=== PATIENT | male | born 1980 | race African-American/Black ===

== ENCOUNTER 2019-04-18 11:02 | Emergency (ER) | payer OTHER ==
[~2019-04-18] VITALS: Ht 175.3 cm; Wt 117.9 kg
[2019-04-18 11:30] LABS: URINE BILIRUBIN NEGATIVE (Negative); URINE BLOOD 3+ (Negative); URINE CLARITY CLEAR; URINE COLOR YELLOW; URINE GLUCOSE-RANDOM* NEGATIVE (Negative); URINE KETONES NEGATIVE (Negative); URINE LEUKOCYTES-REFLEX 3+ (Negative); URINE NITRITE-REFLEX POSITIVE (Negative); URINE PROTEIN (DIPSTICK) 2+ (Negative); URINE UROBILINOGEN 0.2 E.U./dl (0.2-1.0)
[2019-04-18 11:35] LABS: CASTS None Seen /LPF (None Seen); SQUAMOUS 0-3 Few /LPF (0-3); URINE RBC >20 Many /HPF (0-2); URINE WBC-REFLEX >25 Many /HPF (0-5)
[2019-04-18 11:36] LABS: CRYSTALS None Seen /LPF (None Seen); WBC CLUMPS Packed (None Seen)
[2019-04-18 13:27] LABS: HEMATOCRIT 39.7 % (42.0-52.0); MCH 29.8 pg (26.0-34.0); MCHC 32.8 g/dL (28.0-37.0); MCV 90.7 fL (80.0-100.0); PLATELET COUNT 342 thou/uL (150-400); RBC 4.37 mil/uL (4.50-6.00); RDW 13.5 % (10.5-14.5); WBC 20.4 thou/uL (4.0-11.0)
[2019-04-18 13:35] LABS: CALCIUM 9.9 mg/dL (8.5-10.1); CREATININE 1.1 mg/dL (0.7-1.3)
[2019-04-18 13:57] LABS: ABSOLUTE NEUTROPHILS 14.5 thou/uL (1.4-8.2)
[2019-04-18 17:20] VITALS: BP 134/82
== END 2019-04-18 17:22 | disposition short-term general hospital (02) ==
LOC: ER 11:02
PROVIDERS: Physician Assistant
DX: A41.9 Sepsis, unspecified organism (principal); N39.0 Urinary tract infection, site not specified; R31.9 Hematuria, unspecified; R42 Dizziness and giddiness; F17.210 Nicotine dependence, cigarettes, uncomplicated

== ENCOUNTER 2019-06-22 19:55 | Emergency (ER) | payer OTHER ==
[~2019-06-22] VITALS: Ht 175.3 cm; Wt 118.8 kg
[2019-06-22 20:46] LABS: URINE BILIRUBIN NEGATIVE (Negative); URINE BLOOD 2+ (Negative); URINE CLARITY CLEAR; URINE COLOR YELLOW; URINE GLUCOSE-RANDOM* NEGATIVE (Negative); URINE KETONES NEGATIVE (Negative); URINE NITRITE-REFLEX NEGATIVE (Negative); URINE PROTEIN (DIPSTICK) TRACE (Negative); URINE SPECIFIC GRAVITY <= 1.005 (1.005-1.035); URINE UROBILINOGEN 0.2 E.U./dl (0.2-1.0)
[2019-06-22 20:55] LABS: URINE LEUKOCYTES-REFLEX 1+ (Negative)
[2019-06-22 21:01] LABS: CASTS None Seen /LPF (None Seen); SQUAMOUS 0-3 Few /LPF (0-3)
[2019-06-22 21:02] LABS: BACTERIA-REFLEX None Seen /HPF (None Seen); CRYSTALS None Seen /LPF (None Seen); URINE RBC 0-2 Rare /HPF (0-2); URINE WBC-REFLEX 6-15 Few /HPF (0-5); WBC CLUMPS Few (None Seen)
[2019-06-22 22:57] LABS: HEMATOCRIT 43.3 % (42.0-52.0); MCH 27.2 pg (26.0-34.0); MCHC 32.4 g/dL (28.0-37.0); MCV 83.8 fL (80.0-100.0); RBC 5.17 mil/uL (4.50-6.00); RDW 15.8 % (10.5-14.5)
[2019-06-22 23:01] LABS: CALCIUM 9.3 mg/dL (8.5-10.1); POTASSIUM 3.7 mmol/L (3.5-5.1)
[2019-06-22 23:08] LABS: ALBUMIN 3.8 g/dL (3.4-5.0); DIRECT BILIRUBIN 0.1 mg/dL (<0.1-0.3); TOTAL BILIRUBIN 0.5 mg/dL (<0.1-1.0); TOTAL PROTEIN 7.8 g/dL (6.4-8.2)
[2019-06-23 03:37] VITALS: BP 146/93
== END 2019-06-23 03:38 | disposition short-term general hospital (02) ==
LOC: ER 19:55
PROVIDERS: Emergency Medicine
DX: A41.9 Sepsis, unspecified organism (principal); N39.0 Urinary tract infection, site not specified; G82.20 Paraplegia, unspecified; R58 Hemorrhage, not elsewhere classified; Z98.890 Other specified postprocedural states; Z88.0 Allergy status to penicillin; F17.210 Nicotine dependence, cigarettes, uncomplicated

== ENCOUNTER 2019-09-10 23:15 | Emergency (ER) | payer OTHER ==
[~2019-09-10] VITALS: Ht 175.3 cm; Wt 117.9 kg
[2019-09-10] MEDS ORDERED: MUSCLE RELAXANT (23:21)
[2019-09-10] MEDS ORDERED: [UNRECOGNIZED DRUG - REMARK] (23:21)
[2019-09-11 01:46] VITALS: BP 135/97
== END 2019-09-11 01:47 | disposition home or self-care (01) ==
LOC: ER 23:15
DX: M54.2 Cervicalgia (principal); R51 Headache; I10 Essential (primary) hypertension; F17.210 Nicotine dependence, cigarettes, uncomplicated; Z88.0 Allergy status to penicillin

== ENCOUNTER 2020-09-23 18:19 | Inpatient (IN) | payer OTHER ==
[~2020-09-23] VITALS: Ht 175.3 cm; Wt 123.6 kg
[~2020-09-23 18:19] MED LIST: MUSCLE RELAXANT; [UNRECOGNIZED DRUG - REMARK]
[2020-09-23 18:22] VITALS: BP 141/86
[2020-09-23] MEDS ORDERED: OXYBUTYNIN 5 MG5 M2 PO (18:33)
[2020-09-23] MEDS ORDERED: ROXICODONE15 MG PO (18:33)
[2020-09-23] MEDS ORDERED: BENAZEPRIL HCL5 MG PO (18:34)
[2020-09-23] MEDS ORDERED: FAMOTIDINE40 MG PO (18:35)
[2020-09-23 19:22] LABS: ABSOLUTE NEUTROPHILS 11.6 thou/uL (1.4-8.2); BASOPHILS 0.2 % (0.0-2.0); EOSINOPHILS 0.1 % (0.0-3.0); HEMOGLOBIN 17.7 gm/dL (14.0-18.0); LYMPHOCYTES 7.3 % (24.0-44.0); MCH 30.1 pg (26.0-34.0); MCHC 32.7 g/dL (28.0-37.0); MONOCYTES 2.2 % (1.0-8.0); PLATELET COUNT 211 thou/uL (150-400); POLYS 90.2 % (36.0-66.0); RBC 5.86 mil/uL (4.50-6.00); RDW 14.3 % (10.5-14.5); WBC 12.8 thou/uL (4.0-11.0)
[2020-09-23 19:27] LABS: URINE BILIRUBIN NEGATIVE (Negative); URINE BLOOD NEGATIVE (Negative); URINE CLARITY CLEAR; URINE COLOR YELLOW; URINE GLUCOSE-RANDOM* NEGATIVE (Negative); URINE KETONES NEGATIVE (Negative); URINE LEUKOCYTES-REFLEX NEGATIVE (Negative); URINE NITRITE-REFLEX NEGATIVE (Negative); URINE PROTEIN (DIPSTICK) 3+ (Negative); URINE SPECIFIC GRAVITY >= 1.030 (1.005-1.035); URINE UROBILINOGEN 0.2 E.U./dl (0.2-1.0)
[2020-09-23 19:40] LABS: SQUAMOUS 4-10 Moderate /LPF (0-3)
[2020-09-23 19:41] LABS: CASTS None Seen /LPF (None Seen); URINE WBC-REFLEX 6-15 Few /HPF (0-5)
[2020-09-23 19:42] LABS: BACTERIA-REFLEX 1-9 Few /HPF (None Seen); CRYSTALS None Seen /LPF (None Seen); MUCUS >6 Heavy strn/LPF (None Seen); URINE RBC None Seen /HPF (0-2)
[2020-09-23 19:48] LABS: CALCIUM 9.7 mg/dL (8.5-10.1); CREATININE 1.1 mg/dL (0.7-1.3); POTASSIUM 4.2 mmol/L (3.5-5.1)
[2020-09-23 19:54] LABS: ALBUMIN 4.3 g/dL (3.4-5.0); TOTAL BILIRUBIN 0.4 mg/dL (0.2-1.0); TOTAL PROTEIN 8.5 g/dL (6.4-8.2)
[2020-09-23] MEDS ORDERED: LEVOFLOXACIN750 MG PO (21:23)
[2020-09-23] MEDS ORDERED: ONDANSETRON HCL4 M2 PO (21:32)
[2020-09-24 13:43] VITALS: BP 156/85
[2020-09-24 14:20] VITALS: BP 156/85
[2020-09-24 14:35] VITALS: BP 140/78
[2020-09-24 15:05] VITALS: BP 151/95
[2020-09-24 15:15] VITALS: BP 151/95
--- NOTE | 2020-09-24 17:08 | NUR ---
PATIENT ARRIVED ON UNIT FROM ER REPORT WAS GIVEN. PT IN ROOM 448 ACCOMPAINED BY HIS AUNT. PT ALERT XS4. V.S 98.6 18 109 151/95 O2 SAT94% 2L /NC . FLUIDS INFUSING ORDERED.WEIGHT = 272.6 HEIGHT =5'9". PT STATES NO PAIN OR RESP DISTRESS. HEART HEALLY DIET. DR LEE IS HOSPITALIST FOR PATIENT.
[2020-09-24 20:45] VITALS: BP 148/92
[2020-09-25 03:41] LABS: HEMATOCRIT 48.8 % (42.0-52.0); HEMOGLOBIN 15.9 gm/dL (14.0-18.0); MCH 29.9 pg (26.0-34.0); MCHC 32.5 g/dL (28.0-37.0); RBC 5.31 mil/uL (4.50-6.00); RDW 14.7 % (10.5-14.5)
--- NOTE | 2020-09-25 04:09 | NUR ---
PATIENT ALERT AND ORIENTED X4. DENIES PAIN. STATED THAT HE DID NOT WANT HIS CONTINUOUS IVF ANYMORE. THIS WAS STOPPED BY THE NURSE. ST CALF SELF WITH CLEAR YELLOW URINE. PATIENT REQUESTED BOOTS ON HIS LOWER LEGS, THIS NURSE ELEVATED WITH A PILLOW AND PUT HIS YELLOW SOCKS ON. REQUESTING BACLOFEN FOR SPASMS AT TIME OF NOTE. THIS NURSE EXPLAINED THAT THIS MED IS SCHEDULED FOR 0600, HOWEVER, IT WAS GIVEN EARLY PER REQUEST. PATIENT HAS MANY REQUESTS AT ONCE. WILL MONITOR.
[2020-09-25 04:27] LABS: CALCIUM 9.6 mg/dL (8.5-10.1); CREATININE 1.3 mg/dL (0.7-1.3); POTASSIUM 4.3 mmol/L (3.5-5.1)
[2020-09-25 08:00] VITALS: BP 150/104
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
[2020-09-25] MEDS ORDERED: BACLOFEN 10MG T10 MG PO (10:45)
[2020-09-25] MEDS ORDERED: MECLIZINE HCL25 MG PO (10:45)
[2020-09-25] MEDS ORDERED: AUGMENTIN 875-1 EACH PO (10:53)
[2020-09-25 10:55] VITALS: BP 150/104
--- NOTE | 2020-09-25 14:22 | NUR ---
PT DISCHARGED HOME WITH NO NEEDS. PT LEFT THE UNIT PRIOR TO SEEING CM.
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
== END 2020-09-25 12:43 | disposition home or self-care (01) | DRG 690 ==
LOC: ER 18:19 → EROBS 09-24 00:21 → 4S 09-24 00:21 → EROBS 09-24 10:04 → 4S 09-24 14:53
PROVIDERS: Nurse Practitioner; Nurse Practitioner Family; ADMIT Hospitalist; ATTEND Hospitalist
DX: N39.0 Urinary tract infection, site not specified (principal); G82.20 Paraplegia, unspecified; R65.10 Systemic inflammatory response syndrome (SIRS) of non-infectious origin without acute organ dysfunction; R33.9 Retention of urine, unspecified; I10 Essential (primary) hypertension; Z79.899 Other long term (current) drug therapy; Z88.0 Allergy status to penicillin; Z99.3 Dependence on wheelchair; Z28.21 Immunization not carried out because of patient refusal; H81.10 Benign paroxysmal vertigo, unspecified ear
CPT/HCPCS: 10102

== ENCOUNTER 2021-02-05 09:08 | Emergency (ER) | payer OTHER ==
[~2021-02-05] VITALS: Ht 175.3 cm; Wt 113.4 kg
[~2021-02-05 09:08] MED LIST changes: +AUGMENTIN 875-1 EACH PO; +BACLOFEN 10MG T10 MG PO; +BENAZEPRIL HCL5 MG PO; +FAMOTIDINE40 MG PO; +LEVOFLOXACIN750 MG PO; +MECLIZINE HCL25 MG PO; +ONDANSETRON HCL4 M2 PO; +OXYBUTYNIN 5 MG5 M2 PO; +ROXICODONE15 MG PO
[2021-02-05 09:12] VITALS: BP 128/85
[2021-02-05 10:59] LABS: URINE BILIRUBIN NEGATIVE (Negative); URINE BLOOD NEGATIVE (Negative); URINE CLARITY CLEAR; URINE COLOR YELLOW; URINE GLUCOSE-RANDOM* NEGATIVE (Negative); URINE KETONES NEGATIVE (Negative); URINE PROTEIN (DIPSTICK) NEGATIVE (Negative); URINE UROBILINOGEN 0.2 E.U./dl (0.2-1.0)
[2021-02-05 11:00] LABS: URINE LEUKOCYTES-REFLEX 1+ (Negative); URINE NITRITE-REFLEX POSITIVE (Negative)
[2021-02-05 11:08] LABS: BACTERIA-REFLEX >30 Many /HPF (None Seen); CASTS None Seen /LPF (None Seen); CRYSTALS None Seen /LPF (None Seen); SQUAMOUS 4-10 Moderate /LPF (0-3); URINE RBC None Seen /HPF (NONE SEEN); URINE WBC-REFLEX 0-5 Rare /HPF (0-5)
[2021-02-05] MEDS ORDERED: KEFLEX750 MG PO (11:52)
== END 2021-02-05 12:26 | disposition home or self-care (01) ==
LOC: ER 09:08
PROVIDERS: Emergency Medicine
DX: M25.552 Pain in left hip (principal); R25.2 Cramp and spasm; N39.0 Urinary tract infection, site not specified; F17.210 Nicotine dependence, cigarettes, uncomplicated; Z88.0 Allergy status to penicillin; Z79.899 Other long term (current) drug therapy